=== PATIENT | female | born 1955 | race Caucasian/White ===

== ENCOUNTER → 2016-09-17 | Outpatient (CLI) | payer OTHER, MEDICAID ==
--- NOTE | 2016-09-17 11:28 | NOWCEV ---
[facility] EVALUATION AND LETTER OF JUSTIFICATION Patient Name: BARBARA CARROLL Physician: DO Aleah Wray Date: 09/17/16 Therapist: Edita Alvarez MS,PT Date of : 1955 MR#: [id number] Contact: Subscriber: BARBARA CARROLL Primary Ins: MEDICARE OUTPATIENT Subscriber #: [id number] EVALUATION FINDINGS Medical history - Barbara is a 61y/o female with primary progressive multiple sclerosis (MS). In May 2012, she underwent a spinal fusion from T3-L5 to correct a severe scoliosis and DDD. In 2000 she underwent a cervical fusion at C5/C6. Barbara takes oral baclofen to manage spasticity/spasms in her hips. Additionally Barbara deals with pain from her significant spinal surgeries. She reports sciatic like symptoms in B LEs. In her L leg she reports that the pain runs down the back of her leg into her foot. On the R side, the pain radiates into her buttocks. She reports the pain can reach an 8/10 in the mornings. 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 She was referred to this clinic by her doctor to have recommendations made for the most medically appropriate PWC to meet her needs. Functional Mobility - Barbara independently utilizes her PWC for all household mobility. She is unable to stand or ambulate, even with an assistive device. She requires a slide board and max assistance from her to complete transfers to/from her chair. Her bed and shower chair are both higher than her current PWC, which requires her to physically lift her between surfaces. This is not sustainable and places both Barbara and her at risk for injury. She requires max assistance for her LEs to complete sit to/ from supine transitions. She requires min assist to roll L and R. Head/Trunk control - Barbara's head control is WFL. Her trunk control is limited and requires UE support to stabilize in response to minimal challenges. Her postural reactions are significantly impaired due to her T3-L5 fusion, and decreased core strength. Motor involvement - Barbara's LEs are more impacted than her UEs. She has 0/5 strength into B DF, knee extension, knee flexion, hip flexion and hip extension. She demonstrated 1/5 strength into R PF, but 0/5 with L PF. She does have spasticity in B hip flexors, which makes it difficult for her to lay flat after sitting. She takes baclofen to help manage this spasticity. Otherwise she is hypotonic throughout her LEs. Her UE MMT strength is as follows: B shoulder flexion and abduction: 3+/5, although resistance testing on the R causes pain in her R buttock, B elbow flexion: 4/5, B elbow extension: 3+/ 5. She has significant weakness throughout her trunk, and requires assistance from her to lean forward in her chair to reposition. Barbaar also has limited flexibility. B LEs are externally rotated. Passively, she can achieve neutral rotation with her LLE, but lacks ~4deg of ER on the R LE. She has significant tightness and increased muscle tone in B hip flexors. Hip extension is -30deg B following laying supine and gentle stretching. She has significant tightness in B Achilles, able to achieve 0degress passive DF after stretching. Posture - Barbara lacks normal spinal curvature and had a flat thoracic and lumbar spine due to her fusion. Her gluteal shelf creates a gap jatinder sitting her her chair, so her mid back is not fully supported. Her pelvis is relatively level. She sits with her legs abducted and externally rotated. Her R LE is more externally rotated than her L, so that she weight bears through the lateral boarder of her R foot on her foot plate. Skin Sensation - Barbara reports no history of skin breakdown, and does not have impairment in sensation. She is incontinent and has to wear a brief. She has significant swelling and pitting edema in B feet and ankles which becomes worse the longer her feet remain in a dependent position. Additionally, the color of her feet becomes more red the longer she sits. Endurance - Barbara reports that she is up in her chair from 7am to 8pm daily. ADLs - Barbara relies on her to complete all ADLs including dressing and bathing. She is unable to cook or do dishes, as she cannot reach counter top heights or reach into cabinets when seated in her chair, so her has to complete all household tasks. Cognitive/Social - Barbara lives with her , who is her primary caregiver, in a single story home with wheelchair accessible entry. 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 Current wheelchair - Barbara currently utilizes a MWD Quantum PWC without any power seating functions which her received in 2010. Due to her welding engineer use of the chair, it is deteriorating and the seating system no longer meets her needs. She reports that she has had the motor replaced on the chair, and the upholstery on the arms and seat is visibly worn. MEDICAL and FUNCTIONAL NEED/OBJECTIVES * To replace Barbara's current custom PWC and seating system to provide her with access to ADLs within her home. PRIMARY FUNCTIONAL LIMITATION (G Code) * Mobility CURRENT STATUS OF PRIMARY FUNCTIONAL LIMITATION (Severity Modifier) * At least 60 percent but less than 80 percent impaired, limited or restricted ( CL) GOAL STATUS OF PRIMARY FUNCTIONAL LIMITATION (Severity Modifier) * At least 60 percent but less than 80 percent impaired, limited or restricted ( CL) DISCHARGE STATUS OF PRIMARY FUNCTIONAL LIMITATION (Severity Modifier) * At least 60 percent but less than 80 percent impaired, limited or restricted ( CL) EQUIPMENT RECOMMENDATIONS AND JUSTIFICATIONS The following recommendations are believed to be the most cost effective way to meet the patients medical and functional needs. * Group 3 power base: Needed to replace Barbara's current PWC which almost 8 years old, no longer meets her needs and is showing age related deterioration from daily use. Additionally her current chair does not provide the power seating function required to allow Barbara to effectively weight shift, manage her tone or manage her LE swelling. Barbara cannot stand or ambulate even with an AD. She cannot utilize a MWC due to decreased endurance from her MS as well as increased pain from her T3-L5 spinal fusion. She cannot utilize a scooter because she is not able to safely transfer on/off device. Barbara will be able to safely transfer on/off PWC with slide board and assistance from her . * Power tilt in space: Needed to allow Barbara to perform pressure relief throughout the day, as she is unable to weight shift independently due to her T3 -L2 spinal fusion and decreased postural control. She cannot effectively perform wheelchair push ups due to weakness in her UEs. Additionally, this will allow Barbara to independently reposition in her chair without requiring external assistance from her . * Power recline: Needed to manage the tone Barbara experiences in her hips. Managing her tone throughout the days by having the ability to open her hip angle will improve Barbara's ability to complete sit to supine transitions, and will help manage her back pain. * Power elevating leg rests: Needed to manage the swelling in Barbara's feet which becomes worse when her LE's are left in a dependent position. * Seat height elevator: Needed to have her C seat height match the surface that Barbara is transferring to. This is necessary because Barbara requires max assistance from caregivers to complete slide board transfers. Transferring from a lower to higher surface places both Barbara and her caregiver at risk for injury. The seat elevator would ensure safety by allowing all of Barbara's transfers to be to a level or lower surface. Additionally, Barbara is unable to participate in ADLs such as cook/meal prep and washing dishes because she is unable to reach counter tops heights and into cabinets from her current wheelchair height. A seat elevator would allow Barbara to participate in cooking/ meal prep and cleaning because she would be able to reach counters, the stove, microwave and cabinets safely, leading to greater independence and less reliance on her caregiver. * Skin protection positioning cushion: Needed to provide Barbara with adequate pressure distribution when in her chair to preserve skin health as she can be in her chair for up to 13 hours a day. Additionally a custom cushion is required to maintain Barbara's pelvic position in order to maintain proper spinal alignment which is critical to maintaining the integrity of her T3-L5 fusion. * Posterior positioning back rest: Needed to work in conjunction with Barbara's seat cushion to provide trunk support and maintain alignment of her spine to safely support her T3-L5 fusion and to help her maintain postural control when performing reaching tasks to complete ADLs. * Adductor pads: Needed to maintain a neutral position of Barbara's LEs to prevent LE contractures and to improve pressure distribution as she is unable to adjust or reposition her LEs independently. Additionally it will help keep her R foot flat on the foot plate and prevent skin breakdown on the lateral boarder of foot. * Headrest with removable mounting hardware: : Needed to support Barbara's head when she is utilizing the tilt and recline functions on his chair. The removable mount is necessary so head rest can be removed for assisted ADLs and self care tasks. * Flip back height adjustable arm rests: Needed so the the height of the arm rests match Barbara's arm length in order to provide her with postural control she needs to perform functional tasks for the chair and to help manage her pain. Flip back is necessary so that arm rests can be moved out of the way to enable Barbara to complete slide board transfers. * Swing away joystick: Needed so that joystick can be moved out of the way so it does not interfere with transfers. Additionally, it will allow Barbara to pull her chair more closely up to surfaces to limit the amount she has to reach to complete functional tasks and ADLs, as her ability to reach is limited by decreased postural control. * Expandable electronics: Needed to allow Barbara to drive and to control the power seating functions on the chair. * Harness for expandable controllers: Needed to allow for use of multiple power seating functions, and to help program upgraded electronics. * Seatbelt: Needed to secure Barbara's pelvis to provide safety when driving. * Transit toe downs: Needed so that Barbara's chair can be safely secured in her accessible van when accessing the community to attend doctors appointments. * Batteries: Needed to provide the chair with power to allow Barbara to drive and utilize the electronic seat functions. These recommendations are based on the likelihood that Barbara will require the use of a wheelchair for mobility for the rest of her life. If you have any questions or concerns regarding the stated recommendations, please feel free to contact the therapist at . Thank you for your cooperation in obtaining the necessary equipment for this patient. SANJUANA Campbell
== END ==
PROVIDERS: ATTEND Family Medicine
DX: G35 Multiple sclerosis (principal); M79.605 Pain in left leg; Z98.1 Arthrodesis status; Z99.3 Dependence on wheelchair
CPT/HCPCS: 97162; G8978; G8979; G8980